=== PATIENT | female | born 1945 | race Caucasian/White ===

== ENCOUNTER → 2016-03-25 | Outpatient (CLI) | payer BC ==
[~2016-03-25] VITALS: Ht 167.6 cm; Wt 93.3 kg
[~2016-03-25] MED LIST: ASPI-321 OR; ATEN50TA8 PO; ATOR-24 PO; BND25X PO; CALCIUM CITRATE PO; CHOL100027 PO; CMD/25 PO; CMD5 PO; DIGO0.122 PO; EFFSR150 PO; FURO-85 PO; GLC/500 PO; HYDC25 PO; HYDR-5688 PO; LEVO75TA5 PO; LOSA1TAB PO; MECL1TAB42 PO; MULT-506 PO; NRN600 PO; OXYB5TAB PO; TRAZ1TAB16 PO; VENL75CA73 PO; [UNRECOGNIZED DRUG - OTHER] PO
[2016-03-25 15:28] VITALS: BP 167/91; PULSE 73; Ht 167.6 cm; Wt 93.3 kg
== END | disposition home or self-care (01) ==
LOC: C.NEUR 13:44
PROVIDERS: ATTEND Internal Medicine Pulmonary Disease
DX: G47.33 Obstructive sleep apnea (adult) (pediatric) (principal); G47.00 Insomnia, unspecified; R53.83 Other fatigue; I48.91 Unspecified atrial fibrillation; G47.19 Other hypersomnia

== ENCOUNTER → 2016-04-11 | Outpatient (CLI) | payer BC ==
[2016-04-11 13:32] LABS: ALT/SGPT 65 U/L (12-78); AST/SGOT 32 U/L (15-37); BLOOD UREA NITROGEN 17 mg/dl (7-18); BUN/CREATININE RATIO 22.6 (10-20); CALCIUM 8.4 mg/dl (8.5-10.1); CARBON DIOXIDE 29 mmol/L (21-32); CHLORIDE 108 mmol/L (98-107); CREATININE 0.75 mg/dl (0.60-1.20); GLUCOSE 143 mg/dl (70-99); HDL CHOLESTEROL 46 mg/dl; POTASSIUM 3.8 mmol/L (3.5-5.1); SODIUM 143 mmol/L (136-145)
[2016-04-11 13:44] LABS: ALB/GLOB RATIO 1.1 (0.9-2); ALKALINE PHOSPHATASE 83 U/L (45-117); CHOLESTEROL 117 mg/dl (0-200); CHOLESTEROL/HDL RATIO 2.5; LDL CHOLESTEROL CALCULATED 50 mg/dl; TRIGLYCERIDES 104 mg/dl (0-150); VERY LOW DENSITY LIPOPROT CALC 21 mg/dl
[2016-04-11 14:21] LABS: ESTIMATED AVERAGE GLUCOSE 120 mg/dl; HA1C FLAG Normal (Normal)
== END | disposition home or self-care (01) ==
LOC: C.LABMFLN 11:20
PROVIDERS: ATTEND Family Medicine
DX: I10 Essential (primary) hypertension (principal); E03.9 Hypothyroidism, unspecified; E78.00 Pure hypercholesterolemia, unspecified; E55.9 Vitamin D deficiency, unspecified

== ENCOUNTER → 2016-05-03 | Outpatient (CLI) | payer BC | END | disposition home or self-care (01) | LOC: C.LABMFLN 10:28 | PROVIDERS: ATTEND Family Medicine | DX: I48.91 Unspecified atrial fibrillation (principal) ==

== ENCOUNTER → 2016-05-10 | Outpatient (CLI) | payer BC ==
[~2016-05-10] MED LIST changes: +TRAZ-119 PO; -TRAZ1TAB16 PO
--- NOTE | 2016-05-11 06:53 | PAP/PSG TECHNICIAN REPORT ---
[facility] Psychiatric Therapist Polysomnogram Report Study name: None Report date: 05/11/2016 Study date: 05/10/2016 Referring Physician: DR. RAYO Name: TEREZA HUGO Interpreting Physician: Juan R Rayo M.D. Date of : 1945 Psychiatric Therapist: Ayla Thomason [facility]. Sex: Female Age: 70 StudyType: PSG Weight: 205 lbs Height: 70 years, Height 5' 6" BMI: 33.08 Medications: AMLODIPINE 5 MG, ASPIRIN 81 MG, ATENOLOL 100 MG, ATORVASTATIN 40 MG, BENADRYL 25 MG, CALCIUM CITRATE 200 MG, DIGOXIN 125 MCG, FUROSEMIDE 20 MG, GABAPENTIN 600 MG, BHGIXNHSYESEF-LQRP-WEQKWRXTT 65-325-100 MG, LEVOTHYROXINE 125 MCG, LORAZEPAM 0.5 MG, LOSARTAN 100 MG, MECLIZINE 25 MG, METFORMIN 500 MG, MULTI VIT, ONE TOUCH SYSTEM, OXYBUTYNIN CHLORIDE 10 MEQ, POTASSIUM CHLORIDE 10 MEQ, TRAZODONE 50 MG, TRIAMCINOLONE ACETONIDE 0.1% EX CREAM, VENLAFAXINE 75 MG, VIT D 2000 UNIT, WARFARIN 2.5 MG AND 5 MG Patient History 70 yr-old female here for a baseline/split study. She has a history of atrial fibrillation, fatigue, snoring, and witnessed apnea. CPAP will be introduced if the AHI is above 15 in two hours of sleep (per doctor's order). Her [place] scale is 13. The test was started on room air. ETCO2 testing was not utilized during this study. Room 7 Parameters Monitored NPSG: E1-M2, E2-M1, Fp1-M2, Fp2-M1, F3-M2, F4-M2, F4-M1, C3-M2, C4-M2, C4-M1, O1-M2, O2-M2, O2-M1, T3-M2, T4-M1, P3-M2, P4-M1, CHIN1, CHIN2, HR, EKG, Legs, PFLOW, SNOR, FLOW, CFLOW, Tidal Volume, THOR, ABDO, SpO2, PLTH, CPRESS, ETCO2 Wave, ETCO2, pH Sleep Architecture Sleep Stages Time at Lights Off 10:38:34 PM STAGES Time (min.) TST (%) Time at Lights On 5:36:34 AM Wake 32.0 -- Total Recording Time (TRT) 418.00 min. N1 26.5 7 Total Sleep Period (TSP) 390.0 min. N2 341.0 88 Total Sleep Time (TST) 386.0min. N3 18.5 5 Awake Time 32.0 min. REM 0.0 0 Wake after Sleep Onset 4.0 min. Sleep Efficiency (SE) 92 % Sleep Onset Latency (JORGE) 28.0 min. Number of Stage 1 Shifts None Awakenings 5 Stage Changes 38 Number of REM periods N/A REM 0.0 0 REM Latency NONE min. NREM 386.0 100 Body Position Analysis Supine Right Left Side Prone Vertical Total Sleep Time (min.) 10.8 386.0 0.0 386.00 0.0 0.0 Total Sleep Time (%) 0% 100% 0% 100 0% N/A% Total Sleep Time REM (min.) 0.0 0.0 0.0 None 0.0 0.0 Total Sleep Time NREM (min.) 0.0 386.0 0.0 None 0.0 0.0 Intermittent Wake (min.) 10.8 21.2 0.0 None 0.0 0.0 Total Sleep Period (%) 0% None None None None None Arousals Myoclonus (PLM) * Events Count Index Events Count Index Spontaneous 6 1 Events Awake (PLMW) 44 82.5 Respiratory 2 0.3 Events Asleep w/ Arousal (PLMA) 20 3.1 PLM 19 3 Events Asleep w/o Arousal (PLMS) 605 94.0 Snoring 0 0 Total Asleep 625 97.2 Total 27 4 Total 669 96 Respiratory Analysis * CA OA MA CH H RERA Total Count 0 0 0 0 3 2 3 Index 0.0 0.0 0.0 0 0.5 0 0.8 Mean Duration 0.0 0.0 0.0 0.00 18.8 16.5 17.9 Longest Duration 0.0 0.0 0.0 0.00 0.0 17.5 18.9 Respiratory Event Summary Total Supine ~Supine Right Left Prone REM NREM Apneas Count 0 N/A 0 0 N/A N/A N/A 0 Index 0.0 N/A 0 0.0 N/A N/A N/A 0 Hypopneas (4% Desat) Count 3 N/A 3 3 N/A N/A N/A 3 Index 0.5 N/A 0 0.5 N/A N/A N/A 0.5 Apneas & All Hypopneas Count 3 N/A 3 3 N/A N/A N/A 3 Index 0.5 N/A 0 0 N/A N/A N/A 0.5 Respiratory Events ([place]+All Hyp+RERA) Count 3 N/A 5 5 N/A N/A N/A 3 Index 0.8 N/A 1 0.8 N/A N/A N/A 0.8 Respiratory Related Arousal Count 2 N/A 2 2 N/A N/A N/A 2 Index 0.3 N/A 0 0 N/A N/A N/A 0 Snoring Analysis Supine Right Left Prone REM NREM Total Snore duration 1.0 min Snores count N/A 25 N/A N/A N/A 25 25 Snore mean duration 2.5 Sec Snores index N/A 4 N/A N/A N/A 3.9 3.9 TST with snoring (%) 0.3% Desaturation Event Summary: Minimum %SpO2 Event Count Mean/Min/Max Duration(sec.) Desaturation Index % Time In Bed > 90 4 18.7 / 12.0 / 24.0 0.6 99.7 86 - 90 0 N/A 0.0 0.2 81 - 85 0 N/A 0.0 0.0 76 - 80 0 N/A 0.0 0.0 71 - 75 0 N/A 0.0 0.0 66 - 70 0 N/A 0.0 0.0 61 - 65 0 N/A 0.0 0.0 56 - 60 0 N/A 0.0 0.0 51 - 55 0 N/A 0.0 0.0 < 50 0 N/A 0.0 0.0 Total REM NREM Awake <50% 0.0 min. 0.0 min. 0.0 min. 0.0 min. 51 - 60% 0.0 min. 0.0 min. 0.0 min. 0.0 min. 61 - 70% 0.0 min. 0.0 min. 0.0 min. 0.0 min. 71 - 80% 0.0 min. 0.0 min. 0.0 min. 0.0 min. 81 - 90% 1.0 min. 0.0 min. 0.8 min. 0.2 min. 91 - 100% 413.5 min. 0.0 min. 385.2 min. 28.3 min. Average 92 0 92 93 Minimum SpO2 81 N/A 88 81 Desaturation Event Index 0.6 0.0 0.6 0.0 # Desat. Events below 89% 1 N/A 1 N/A Time(%) with Saturation below 89% 0.1 0.0 0.0 0.0 Time(min.) with Saturation below 89% 0.3 0.0 0.1 0.2 Time (mins) REM (mins) NREM (mins) % of TST SpO2 Below 90% 1 N/A N1 0.0 SpO2 Below 88% 0 0 0 0 Heart Rate Analysis Min (bpm) Max (bpm) Average (bpm) Awake 47 78 64 NREM 39 75 56 REM N/A N/A N/A Overall 39 75 56 Supplemental O2 Values Minimum O2 level: None Value Start Time End Time Psychiatric Therapist Comments Ms. Hugo slept only in the right side position. Cardiac arrhythmias were noted (please refer to the print outs). PLMs were noted. No bruxism noted. Snoring was noted and scored as a 2 on a scale of 1 through 5. (0=no snoring, 5=snoring loud enough to be heard through a closed door or down the nick way) She did not meet specific Split-Night criteria during the diagnostic portion of this study. She did not wake up to use the restroom during the night. Ms. Hugo stated that she slept the same as usual. The final report will be interpreted and signed by a sleep physician. The completed physician report will then be placed in the patient medical record. Therapy (cm H2O) 0 TIB (min.) 418.0 TST (min.) 386.0 Sleep Onset (min.) 28.0 REM Onset From Sleep (min.) NONE Sleep Efficiency % 92 Wakefulness (%) 8 Wakefulness (min.) 32.0 NREM 1 (%) 7 NREM 1 (min.) 26.5 NREM 2 (%) 88 NREM 2 (min.) 341.0 NREM 3 (%) 5 NREM 3 (min.) 18.5 REM (%) 0 REM (min.) 0.0 # Arousals 27 Arousal Index 4 # Snore 25 Snore Index 3.9 AHI 0.5 AHI Supine N/A AHI Non-Supine 0 NREM AHI 0.5 REM AHI N/A RDI 0.8 # Obstructive Apnea 0 # Central Apnea 0 # Mixed Apnea 0 # Hypopneas 3 RERAs 2 Total Respiratory Events 5 Time Below SpO2 89% (min.) 0.1 Mean NREM SpO2 (%) 92 Mean REM SpO2 (%) N/A Mean Sleep SpO2 (%) 92 Min NREM SpO2 (%) 88 Min REM SpO2 (%) N/A Position Supine (min.) 10.8 Position Non-supine (min.) 386.0 LM Index Sleep 97.2 LM Index NREM 97.2 LM Index REM N/A Mean Heart Rate (bpm) 56 Min Heart Rate (bpm) 39
--- NOTE | 2016-05-11 16:06 | POLYSOMNOGRAPH REPORT ---
CLINICAL DATA: This is a 70-year-old female with BMI of 33 referred by myself and her primary care physician for evaluation of possible sleep apnea. She has atrial fibrillation, fatigue, snoring, and witnessed apnea. Her [place] sleepiness score is elevated at 13/24. SLEEP ARCHITECTURE: Total sleep period was 390 minutes. Total sleep time was 386 minutes all non-REM sleep. Sleep onset latency was 28 minutes. REM was not achieved. Sleep efficiency was 92%. Awake after sleep onset was 4 minutes. Sleep consisted of stage N1 at 7%, N2 at 88%, and N3 at 5%. AROUSAL DATA: 27 arousals were recorded for an index of 4 per hour. PLM DATA: Severe PLMD was noted. There were 625 limb movements during sleep noted for an index of 97.2 per hour with arousal index of 3.1 per hour. RESPIRATORY DATA: There was no evidence of clinically significant sleep apnea/hypopnea noted. The AHI was 0.5. There were 3 hypopneic episodes. The mean duration of hypopnea was 18.8 seconds. OXIMETRY DATA: No significant hypoxemia was seen. Oxygen carol was 88% during non-REM sleep. Mean saturation was 92%. EKG: Heart rates ranged from 39-75 beats per minute. Atrial fibrillation was noted. PAN WASHER'S COMMENTS: The patient slept in the right position. Frequent PLMs were noted. Snoring was mild, rated 2 on a scale of 1-5. IMPRESSION: 1. No evidence of clinically significant sleep apnea/hypopnea. 2. Severe periodic limb movement disorder. RECOMMENDATIONS: The patient may benefit from evaluation and treatment for PLMD. There is no evidence that CPAP would be of benefit. MTDD
== END | disposition home or self-care (01) ==
LOC: C.NEUR 21:00
PROVIDERS: ATTEND Internal Medicine Pulmonary Disease
DX: I48.91 Unspecified atrial fibrillation (principal); G47.19 Other hypersomnia; R53.83 Other fatigue; G47.00 Insomnia, unspecified; G47.33 Obstructive sleep apnea (adult) (pediatric)

== ENCOUNTER → 2016-05-20 | Outpatient (CLI) | payer BC ==
[~2016-05-20] VITALS: Ht 167.6 cm; Wt 90.2 kg
[2016-05-20 16:03] VITALS: BP 187/84; PULSE 76; Ht 167.6 cm; Wt 90.2 kg
== END | disposition home or self-care (01) ==
LOC: C.NEUR 13:29
PROVIDERS: ATTEND Internal Medicine Pulmonary Disease
DX: G47.61 Periodic limb movement disorder (principal); G62.9 Polyneuropathy, unspecified; R53.83 Other fatigue; G47.19 Other hypersomnia

== ENCOUNTER → 2016-08-12 | Outpatient (CLI) | payer BC ==
[~2016-08-12] MED LIST changes: -TRAZ-119 PO; +TRAZ1TAB16 PO
[2016-08-12 13:28] LABS: ESTIMATED AVERAGE GLUCOSE 120 mg/dl; HA1C FLAG Normal (Normal)
[2016-08-12 14:59] LABS: ALT/SGPT 39 U/L (12-78); AST/SGOT 28 U/L (15-37); BLOOD UREA NITROGEN 13 mg/dl (7-18); BUN/CREATININE RATIO 15.7 (10-20); CARBON DIOXIDE 30 mmol/L (21-32); CHLORIDE 109 mmol/L (98-107); CREATININE 0.83 mg/dl (0.60-1.20); GLUCOSE 129 mg/dl (70-99); POTASSIUM 3.5 mmol/L (3.5-5.1); SODIUM 145 mmol/L (136-145)
[2016-08-12 15:07] LABS: CALCIUM 9.8 mg/dl (8.5-10.1)
[2016-08-12 15:10] LABS: ALB/GLOB RATIO 1.1 (0.9-2); ALKALINE PHOSPHATASE 92 U/L (45-117); CHOLESTEROL 111 mg/dl (0-200); CHOLESTEROL/HDL RATIO 2.6; FERRITIN 37.1 ng/ml (8.0-388.0); HDL CHOLESTEROL 42 mg/dl; LDL CHOLESTEROL CALCULATED 42 mg/dl; TRIGLYCERIDES 135 mg/dl (0-150); VERY LOW DENSITY LIPOPROT CALC 27 mg/dl
== END | disposition home or self-care (01) ==
LOC: C.LABMFLN 11:34
PROVIDERS: ATTEND Family Medicine
DX: G47.61 Periodic limb movement disorder (principal); I48.91 Unspecified atrial fibrillation; E03.9 Hypothyroidism, unspecified; I25.10 Atherosclerotic heart disease of native coronary artery without angina pectoris; E78.00 Pure hypercholesterolemia, unspecified; E55.9 Vitamin D deficiency, unspecified; E11.40 Type 2 diabetes mellitus with diabetic neuropathy, unspecified

== ENCOUNTER → 2016-08-29 | Outpatient (CLI) | payer BC ==
[2016-08-29 18:34] LABS: RATIO 18.6 mcg/mg (0-30.0)
== END | disposition home or self-care (01) ==
LOC: C.LABMFLN 12:28
PROVIDERS: ATTEND Family Medicine
DX: I48.91 Unspecified atrial fibrillation (principal); E03.9 Hypothyroidism, unspecified; I25.10 Atherosclerotic heart disease of native coronary artery without angina pectoris; E78.00 Pure hypercholesterolemia, unspecified; E55.9 Vitamin D deficiency, unspecified; E11.40 Type 2 diabetes mellitus with diabetic neuropathy, unspecified

== ENCOUNTER → 2016-10-27 | Outpatient (CLI) | payer BC | END | disposition home or self-care (01) | LOC: C.LABMFLN 12:27 | PROVIDERS: ATTEND Family Medicine | DX: I48.91 Unspecified atrial fibrillation (principal) ==

== ENCOUNTER → 2017-01-30 | Outpatient (CLI) | payer BC ==
[~2017-01-30] MED LIST changes: +TRAZ-119 PO; -TRAZ1TAB16 PO
[2017-01-30 18:51] LABS: ALT/SGPT 38 U/L (12-78); AST/SGOT 31 U/L (15-37); BLOOD UREA NITROGEN 17 mg/dl (7-18); CALCIUM 9.1 mg/dl (8.5-10.1); CARBON DIOXIDE 29 mmol/L (21-32); CHLORIDE 108 mmol/L (98-107); CREATININE 0.87 mg/dl (0.60-1.20); GLUCOSE 96 mg/dl (70-99); POTASSIUM 3.6 mmol/L (3.5-5.1); SODIUM 141 mmol/L (136-145)
[2017-01-30 19:02] LABS: ALB/GLOB RATIO 1.1 (0.9-2); ALKALINE PHOSPHATASE 103 U/L (45-117); CHOLESTEROL 107 mg/dl (0-200); CHOLESTEROL/HDL RATIO 2.6; HDL CHOLESTEROL 41 mg/dl; LDL CHOLESTEROL CALCULATED 42 mg/dl; TRIGLYCERIDES 119 mg/dl (0-150); VERY LOW DENSITY LIPOPROT CALC 24 mg/dl
[2017-01-31 07:37] LABS: ESTIMATED AVERAGE GLUCOSE 114 mg/dl; HA1C FLAG Normal (Normal)
== END | disposition home or self-care (01) ==
LOC: C.LABMFLN 11:59
PROVIDERS: ATTEND Family Medicine
DX: I48.91 Unspecified atrial fibrillation (principal); E03.9 Hypothyroidism, unspecified; E78.00 Pure hypercholesterolemia, unspecified; E55.9 Vitamin D deficiency, unspecified; E11.40 Type 2 diabetes mellitus with diabetic neuropathy, unspecified

== ENCOUNTER → 2017-09-06 | Outpatient (CLI) | payer BC ==
[~2017-09-06] MED LIST changes: -TRAZ-119 PO; +TRAZ1TAB96 PO
[2017-09-06 19:12] LABS: ALKALINE PHOSPHATASE 94 U/L (45-117); ALT/SGPT 38 U/L (12-78); AST/SGOT 34 U/L (15-37); BLOOD UREA NITROGEN 13 mg/dl (7-18); CALCIUM 9.6 mg/dl (8.5-10.1); CARBON DIOXIDE 30 mmol/L (21-32); CHOLESTEROL 96 mg/dl (0-200); CREATININE 1.22 mg/dl (0.60-1.20); GLUCOSE 112 mg/dl (70-99); LDL CHOLESTEROL CALCULATED 33 mg/dl; POTASSIUM 3.5 mmol/L (3.5-5.1); SODIUM 143 mmol/L (136-145); TOTAL PROTEIN 7.2 gm/dl (6.4-8.2)
[2017-09-07 06:12] LABS: HEMOGLOBIN A1C 5.4 % (4.5-5.6)
== END | disposition home or self-care (01) ==
LOC: C.LABMFLN 12:02
PROVIDERS: ATTEND Family Medicine
DX: Z00.00 Encounter for general adult medical examination without abnormal findings (principal); I48.91 Unspecified atrial fibrillation; I10 Essential (primary) hypertension; I25.10 Atherosclerotic heart disease of native coronary artery without angina pectoris; E78.00 Pure hypercholesterolemia, unspecified; E03.9 Hypothyroidism, unspecified; E55.9 Vitamin D deficiency, unspecified; E11.40 Type 2 diabetes mellitus with diabetic neuropathy, unspecified